=== PATIENT | male | born 1980 | race Caucasian/White ===

== ENCOUNTER 2018-09-22 15:09 | Outpatient (REF) | payer SELFPAY ==
[2018-09-22 19:25] LABS: BUN 12 mg/dL (7-18); CREATININE 0.83 mg/dL (0.70-1.30); Calcium 8.9 mg/dL (8.5-10.1); Calculated LDL 97 mg/dL; Chloride 104 mmol/L (98-107); Cholesterol 182 mg/dL (50-200); Glucose 98 mg/dL (70-100); HDL Cholesterol 78 mg/dL (40-60); Sodium 142 mmol/L (136-145); Triglyceride 36 mg/dL (30-150)
== END 2018-09-22 15:29 ==
LOC: NCHCN 15:09
PROVIDERS: PCP Family Medicine; Visit Provider Family Medicine
DX: I10 Essential (primary) hypertension (principal)
CPT/HCPCS: 80048; 80061; 83721

== ENCOUNTER 2018-11-11 14:46 | Outpatient (CLI) | payer SELFPAY ==
--- NOTE | 2018-11-11 14:00 | DI.RAD_ITS ---
EXAM: XR SHOULDER LT COMPLETE 2+V INDICATION: RADIAL NERVE COMPRESSION G56.30. COMPARISON: No exams were available for comparison TECHNIQUE: 2D digital imaging was performed. FINDINGS: The bony structures are normally mineralized. The joint spaces are intact. No soft tissue abnormality is apparent. IMPRESSION:
== END 2018-11-11 15:06 ==
PROVIDERS: PCP Family Medicine; Visit Provider Nurse Practitioner Family
DX: G56.32 Lesion of radial nerve, left upper limb (principal)
CPT/HCPCS: 73030

== ENCOUNTER 2018-11-24 19:40 | Outpatient (REF) | payer SELFPAY ==
[2018-11-24 19:56] LABS: Potassium 4.3 mmol/L (3.5-5.1)
== END 2018-11-24 20:00 ==
LOC: NCHCN 19:40
PROVIDERS: PCP Family Medicine; Visit Provider Family Medicine
DX: E87.6 Hypokalemia (principal)
CPT/HCPCS: 84132

== ENCOUNTER 2018-11-25 18:32 | Outpatient (REF) | payer SELFPAY ==
[2018-11-25 19:35] LABS: Abs Immature Grans 0.01 k/cumm (0.0-0.09); Absolute Basophil Count 0.02 k/cumm (0.0-0.2); Absolute Eosinophil Count 0.06 k/cumm (0.0-0.7); Absolute Lymphocyte Count 0.85 k/cumm (1.2-3.4); Absolute Monocyte Count 0.43 k/cumm (0.11-0.7); Absolute Neutrophil Count 2.68 k/cumm (1.2-6.7); Basophils % 0.5; Eosinophils % 1.5; HCT 38.7 % (40.0-50.0); HGB 13.4 g/dL (13.5-17.5); Immature Grans % 0.2; Mean Corp. HGB Concentration 34.6 g/dL (32.0-36.0); Mean Corpuscular Hemoglobin 32.2 pg (27.0-33.0); Mean Platelet Volume 9.3 fL (8.0-11.0); Monocytes % 10.6; Neutrophils % 66.2; Platelet Count 225 x1000/uL (130-400); RBC 4.16 m/cumm (4.50-6.00); RBC Distribution Width 12.8 % (11.8-14.1); White Blood Cell Count 4.05 k/cumm (4.4-10.8)
[2018-11-25 19:59] LABS: Vitamin B12 403 pg/mL (193-986)
[2018-11-27 10:01] LABS: Hepatitis C Ab w Rflx HCV PCR Negative (NEGAT)
[2018-11-27 10:07] LABS: HIV-1/2 Ag & Ab Screen Negative (NEGAT)
== END 2018-11-25 18:52 ==
LOC: NCHCN 18:32
PROVIDERS: PCP Family Medicine; Visit Provider Family Medicine
DX: D64.9 Anemia, unspecified (principal); G56.30 Lesion of radial nerve, unspecified upper limb; Z11.4 Encounter for screening for human immunodeficiency virus [HIV]; D70.9 Neutropenia, unspecified; Z00.00 Encounter for general adult medical examination without abnormal findings
CPT/HCPCS: 86803; 87389; 82607; 85025

== ENCOUNTER 2018-12-19 19:08 | Outpatient (REF) | payer SELFPAY ==
[2018-12-19 19:50] LABS: C-Reactive Protein 0.07 mg/dL (0.0-0.3)
[2018-12-19 19:54] LABS: Iron 88 ug/dL (50-175); Total Iron Binding Capacity 317 ug/dL (250-450); Transferrin Sat 28 % (20-55)
== END 2018-12-19 19:28 ==
LOC: NCHCN 19:08
PROVIDERS: PCP Family Medicine; Visit Provider Family Medicine
DX: G56.30 Lesion of radial nerve, unspecified upper limb (principal); D64.9 Anemia, unspecified
CPT/HCPCS: 83540; 83550; 86140